=== PATIENT | male | born 1970 | race Caucasian/White ===

== ENCOUNTER 2018-12-30 07:58 | Day surgery (SDC) | payer BC ==
[2018-12-30] MEDS ORDERED: MAGNESIUM SULFATE 1 GM/2 ML VIAL IV ONE (07:59)
[2018-12-30] MEDS ORDERED: DEXAMETHASONE 4 MG/ML VIAL IVP ONE (07:59)
[2018-12-30] MEDS ORDERED: fentaNYL 100 MCG/2 ML VIAL IVP ONE (07:59)
[2018-12-30] MEDS ORDERED: NEOSTIGMINE 1 MG/1 ML 10 ML MDV IVP ONE (07:59)
[2018-12-30] MEDS ORDERED: PROPOFOL 200 MG/20 ML VIAL IVP ONE (07:59)
[2018-12-30] MEDS ORDERED: MIDAZOLAM 2 MG/2 ML VIAL IVP ONE (07:59)
[2018-12-30] MEDS ORDERED: KETOROLAC 30 MG/ML VIAL IVP ONE (07:59)
[2018-12-30] MEDS ORDERED: KETAMINE 500 MG/10 ML VIAL IVP ONE (07:59)
[2018-12-30] MEDS ORDERED: ONDANSETRON 4 MG/2 ML VIAL IVP ONE (07:59)
[2018-12-30] MEDS ORDERED: ROCURONIUM 50 MG/5 ML VIAL IVP ONE (07:59)
[2018-12-30] MEDS ORDERED: GLYCOPYRROLATE 1 MG/5 ML VIAL IVP ONE (07:59)
[2018-12-30] MEDS ORDERED: CEFAZOLIN SODIUM IN 0.9 % NACL 2 GM/100 ML BAG IV ONE (08:15)
[2018-12-30] MEDS ORDERED: LACTATED RINGERS 1,000 ML IV ONE (08:49)
--- NOTE | 2018-12-30 09:10 | ANESTHESIA ---
Pre-Anesthesia VS, & Labs - Diagnosis R achilles tendon tear - Procedure R achilles tendon repair Vital Signs: Temp Pulse Resp BP Pulse Ox 36.2 C L 65 16 112/71 94 12/30/18 08:21 12/30/18 08:21 12/30/18 08:21 12/30/18 08:21 12/30/18 08:21 Height 6 ft 3 in Weight (kg) 108.5 kg - NPO >8 hours Home Medications and Allergies Allergies/Adverse Reactions: Allergies Allergy/AdvReac Type Severity Reaction Status Date / Time oxycodone [From Percocet] Allergy Intermediate Rash Verified 12/30/18 08:50 acetaminophen [From Percocet] Allergy Rash Verified 12/30/18 08:50 Anes History & Medical History - Anesthetic History Anesthesia Complications: reports: No previous complications Family history of Anesthesia Complications: Denies Family history of Malignant Hyperthermia: Denies - Medical History Cardiovascular: reports: None Pulmonary: reports: Sleep apnea, CPAP use Gastrointestinal: reports: GERD Urinary: reports: Kidney stones Musculoskeletal: reports: Osteoarthritis Skin: reports: None - Surgical History General: Colonoscopy, Other Exam General: Alert, Oriented x3, Cooperative Dental: WNL (cap at #8) Mouth Openin Fingerbreadth Neck Mobility: Normal Mallampati classification: II Thyromental Distance: 4-6 cm Respiratory: Lungs clear, Normal breath sounds Cardiovascular: Regular rate Abdomen: Normal bowel sounds Neurological: Normal speech Mental/Cognitive Status: Alert/Oriented X3, Normal for patient Cognitive Status: Within normal limits Plan Anesthesia Type: General Consent for Procedure(s) Verified and Reviewed: Yes Code Status: Attempt Resuscitation ASA classification: 2-Mild systemic disease Is this case an emergency?: No
[2018-12-30] MEDS ORDERED: LIDOCAINE-MPF 1% 30 ML VIAL ONE (10:09)
[2018-12-30] MEDS ORDERED: BUPIVACAINE 0.25%-EPI 1:200000 PF 30 ML VIAL ONE (10:10)
[2018-12-30] MEDS ORDERED: BUPIVACAINE 0.25%-EPI 1:200000 PF 30 ML VIAL SUBQ ONE ×2 (10:50)
[2018-12-30] MEDS ORDERED: LIDOCAINE 1% 50 ML MDV SUBQ ONE ×2 (10:50)
[2018-12-30] MEDS ORDERED: HYDROcod/ACETAM 5/325 MG TABLET PO PRN (11:27)
--- NOTE | 2018-12-30 11:27 | OPERATIVE REPORT ---
Operative Report - General Procedure Date: 12/30/18 Planned Procedure: repair of right achilles tendon Pre-Op Diagnosis: Achilles tendon tear Procedure Performed: Primary repair of right Achilles tendon Post Op Diagnosis: same - Procedure Note Primary Surgeon: sameer Anesthesia Provider: Marcus Anesthesia Technique: General ET tube Estimated Blood Loss (mL): 20
[2018-12-30] MEDS: fentaNYL 100 MCG/2 ML VIAL ONE ×2 (12:07→12:12)
[2018-12-30] MEDS ORDERED: HYDROmorphone 0.5 MG/0.5 ML SYRINGE ONE (12:29)
[2018-12-30] MEDS ORDERED: HYDROcod/ACETAM 5/325 MG TABLET ONE (13:04)
[2018-12-30] MEDS ORDERED: ONDANSETRON 4 MG/2 ML VIAL ONE (13:56)
[2018-12-30 14:05] VITALS: BP 106/76
== END 2018-12-30 07:59 | disposition home or self-care (01) ==
LOC: SDS 07:58
PROVIDERS: ATTEND Orthopaedic Surgery
PROC: 0LQN0ZZ Repair Right Lower Leg Tendon, Open Approach (ICD-10-PCS; principal; 2018-12-30 09:00)
DX: S86.011A Strain of right Achilles tendon, initial encounter (principal); G47.30 Sleep apnea, unspecified
CPT/HCPCS: 27650; A9270; J0690; J1170; J7120

== ENCOUNTER 2019-05-13 08:00 | Outpatient (CLI) | payer BC, OTHER ==
[2019-05-13 13:37] LABS: ALBUMIN 4.7 g/dL (3.2-5.5); ALBUMIN/GLOBULIN RATIO 1.6 (1.0-2.2); ALKALINE PHOSPHATASE 57 IU/L (42-121); ALT ALANINE AMINOTRANSFERASE 63 IU/L (10-60); AST ASPARTATE AMINOTRANSFERASE 56 IU/L (10-42); BILIRUBIN,TOTAL 1.1 mg/dL (0.2-1.0); BUN - BLOOD UREA NITROGEN 21 mg/dL (6-20); CALCIUM 9.7 mg/dL (8.5-10.3); CARBON DIOXIDE - CO2 28 mmol/L (21-32); CHLORIDE 107 mmol/L (101-111); CHOL/HDL RATIO 5.4 (<5.0); CHOLESTEROL 212 mg/dL; CREATININE 0.9 mg/dL (0.6-1.2); GFR - MDRD 90 (>89); GLUCOSE 107 mg/dL (70-100); HDL CHOLESTEROL 39 mg/dL; LDL CHOLESTEROL,CALCULATED 134 mg/dL; LDL/HDL RATIO 3.4 (<3.6); SODIUM 141 mmol/L (135-145); TOTAL PROTEIN 7.7 g/dL (6.7-8.2); VLDL CHOLESTEROL 39 mg/dL
== END 2019-05-13 23:59 | disposition home or self-care (01) ==
LOC: LAB.WCP 08:00
PROVIDERS: ATTEND Family Medicine
DX: Z00.00 Encounter for general adult medical examination without abnormal findings (principal)
CPT/HCPCS: 36415; 80053; 80061; 83721

== ENCOUNTER 2019-06-16 07:09 | Outpatient (CLI) | payer OTHER ==
--- NOTE | 2019-06-16 10:53 | Ultrasound Report ---
Reason: LIVER FUNCTION TESTS ABN Procedure Date: 06/16/2019 Accession Number: [id number] / [id number] Procedure: US - Abdomen Complete CPT Code: Final Report FULL RESULT: EXAM: ABDOMEN ULTRASOUND EXAM DATE: 06/16/2019 07:46 AM. CLINICAL HISTORY: Elevated liver enzymes. COMPARISON: None. TECHNIQUE: Real-time scanning was performed with static images obtained. FINDINGS: Liver: Liver parenchyma is moderately echogenic diffusely. A hypoechoic nodule in the inferior right hepatic lobe measures 1.4 x 1.4 x 0.9 cm and has some internal vascularity. The right lobe measures 18.7 cm. Main portal vein flow: Hepatopetal. Gallbladder: Normal. No stones, wall thickening, or sonographic Aguirre's sign. Biliary System: Common bile duct measures 3 mm. No intrahepatic or extrahepatic ductal dilatation. Pancreas: Visualized portion is unremarkable. Kidneys: Right: 11.7 cm longitudinally. Normal. No contour-deforming mass, stones, or hydronephrosis. Left: 12.6 cm longitudinally. Normal. No contour-deforming mass, stones, or hydronephrosis. Spleen: 13.6 cm. Estimated volume 252 cc, within normal limits. Aorta and Inferior Vena Cava: Unremarkable. Other: None. IMPRESSION: 1. Moderately fatty infiltrated liver. 2. 1.4 cm indeterminate hypoechoic vascular inferior right hepatic lobe nodule. Follow-up ultrasound in 6 months to ensure stability versus further evaluation with liver CT or MRI suggested. RADIA
== END 2019-06-16 07:10 | disposition home or self-care (01) ==
LOC: DI 07:09
PROVIDERS: ATTEND Family Medicine
DX: K76.0 Fatty (change of) liver, not elsewhere classified (principal); R16.0 Hepatomegaly, not elsewhere classified
CPT/HCPCS: 76700

== ENCOUNTER 2019-07-09 13:20 | Outpatient (CLI) | payer OTHER ==
[2019-07-09] MEDS ORDERED: GADOBUTROL 10 MMOL/10 ML VIAL ONE (14:40)
--- NOTE | 2019-07-09 14:54 | MRI Report ---
Reason: JOINT PAIN IN LT KNEE Procedure Date: 07/09/2019 Accession Number: [id number] / [id number] Procedure: MRI - Knee LT W/O CPT Code: Final Report FULL RESULT: EXAM: LEFT KNEE MRI WITHOUT CONTRAST EXAM DATE: 07/09/2019 02:34 PM. CLINICAL HISTORY: JOINT PAIN IN LT KNEE. COMPARISON: XR KNEE 2 VIEWS LEFT 10/07/2018 8:04 AM. TECHNIQUE: Multiplanar, multisequence T1-weighted and fluid-sensitive sequences of the knee without contrast. Other: None. FINDINGS: Bones and articular cartilage: Mild subcortical marrow edema at the anterior and medial aspects of the medial tibial plateau. 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 Grade II-III chondromalacia of the medial femoral condyle. Small marginal osteophytes of the femoral condyles and medial tibial plateau. Small articular cartilage fissure at the lateral patellar facet. Medial Meniscus: Free edge fraying and focal radial tear at the inner third of the posterior horn. Lateral Meniscus: The lateral meniscus is intact. Cruciate Ligaments: The anterior and posterior cruciate ligaments are intact. Collateral Ligaments: The medial collateral and lateral collateral ligamentous structures are intact. Tendons: The quadriceps, patellar, semimembranosus, and popliteus tendons are unremarkable. Small synovial cyst or ganglion along the popliteus muscle tendon unit. Musculature: No edema or fatty atrophy. Other: Small joint effusion. No popliteal cyst. No loose bodies. The medial and lateral retinacula are intact. The subcutaneous tissues and fat pads are unremarkable. IMPRESSION: 1. 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 2. Free edge fraying and focal radial tear at the posterior horn medial meniscus. 3. Small synovial cyst or ganglion along the popliteus muscle tendon unit. 4. Small joint effusion. RADIA
[2019-07-09] MEDS ORDERED: GADOBUTROL 10 MMOL/10 ML VIAL IVP ONE (16:02)
== END 2019-07-09 13:21 | disposition home or self-care (01) ==
LOC: DI 13:20
PROVIDERS: ATTEND Family Medicine
DX: M94.262 Chondromalacia, left knee (principal); S83.242A Other tear of medial meniscus, current injury, left knee, initial encounter; M25.862 Other specified joint disorders, left knee; M25.462 Effusion, left knee
CPT/HCPCS: 73721; A9585

== ENCOUNTER 2019-07-15 07:00 | Outpatient (CLI) | payer OTHER ==
[2019-07-15 12:27] LABS: ALBUMIN 4.9 g/dL (3.2-5.5); ALBUMIN/GLOBULIN RATIO 1.6 (1.0-2.2); BILIRUBIN,TOTAL 1.1 mg/dL (0.2-1.0); CALCIUM 9.7 mg/dL (8.5-10.3); CREATININE 0.9 mg/dL (0.6-1.2)
[2019-07-15 13:26] LABS: HB2 TOTAL 15.9 g/dL; HEMOGLOBIN A1C 0.6 g/dL; HEMOGLOBIN A1C % 5.6 % (4.6-6.2)
[2019-07-17 14:44] LABS: HEPATITIS B SURFACE ANTIGEN NON-REACTIVE (NON-REACTIVE); HEPATITIS C ANTIBODY NON-REACTIVE (NON-REACTIVE)
== END 2019-07-15 23:59 | disposition home or self-care (01) ==
LOC: LAB.WCP 07:00
PROVIDERS: ATTEND Family Medicine
DX: R94.5 Abnormal results of liver function studies (principal); R73.01 Impaired fasting glucose; K76.89 Other specified diseases of liver
CPT/HCPCS: 36415; 80053; 83036; 86317; 86704; 86709; 86803; 87340

== ENCOUNTER 2020-05-05 14:24 | Outpatient (CLI) | payer OTHER ==
[2020-05-05 15:30] VITALS: BP 123/76
--- NOTE | 2020-05-05 15:30 | SLEEP CARE CONSULTATION ---
Information from patient questionnaire entered by Masha Lott. I have reviewed and concur with the information entered by Masha Lott. This document represents the service I personally performed and the decisions made by me, Jaylin Esqiuvel ARNP. History of Present Illness Service Date and Time: 05/05/2020 1424 Reason for Visit: New patient, Previously diagnosed sleep apnea, sleep apnea on CPAP therapy Chief Complaint: reports: Other (ongoing sleep apnea - machine problems) Date of Onset: 10 years or so Usual bedtime: 10-11 PM Time it takes to fall asleep: Less than 5 minutes Snores at night: No (Not when using mask) Observed to quit breathing while asleep: Yes (Only when not on machine) Sleeps alone due to snoring: No (thanks to machine) Number of times waking at night: Several Reasons for waking at night: denies: Choking, Snoring, Gasping for air Toss, Turn, or Twitch while sleeping: Yes Recalls having dreams: Yes Usually gets out of bed at: 4:30 AM Feels refreshed in the morning: No Morning headache: No Sleepy or fatigued during the day: Yes Ever fallen asleep while driving: Yes Takes day naps: Yes (randomely) Prior sleep studies: Yes Year and Where: 2009 at [facility] in [place] Type of Sleep Study: Polysomnography Additional HPI information: LAM MOE was diagnosed to have moderate, AHI 22.2, obstructive sleep apnea-hypopnea syndrome from a sleep study about 10 year ago by [facility] and comes in to establish care for CPAP therapy. - Parasomnia Symptoms Ever been unable to move upon waking from sleep: No Walks in sleep: No Talks in sleep: No Ever acted out dreams in sleep: No Ever felt weak in the knees when startled or emotional: No Bothered by creepy, crawly, restless sensations in legs: No Problems with memory or concentration: Yes CPAP Compliance Data - Data Reviewed with Patient Average duration of nightly device use: 7 hours 11 minutes Compliance rate %: 98.9 Current pressure setting (cmH2O): 10-14 Average residual AHI: 1.4 Central apnea: 0.1 Obstructive apnea: 0.9 Compliance data discussion: He has been ordering mask and other equipment online. He was with [facility] but it became a hassle and he could get supplies for better zavala online. The heated sometimes doesn't work on his machine and sometimes the humidity is not working right. He is having more tiredness during the day and not feeling as rested and is not sure if the machine is working properly. He is not sure how old the current machine is but thinks it is over 5 years old. He has been on CPAP for the last 10 years. Subjective Patient concerns: reports: condensation in mask/hose (sometimes lately). denies: aerophagia, mask discomfort, air blowing in eyes, mask leak noise, nasal congestion, dry mouth, nose, throat, epistaxis, other Observed to snore while using device: No Current pressure setting perceived as: too low (might be low but machine may not be working correctly at this time) On therapy, patient: reports: sleeping better, awakening more refreshed, being more awake and alert during the day, more rested overall. denies: drowsiness while driving Initial [place] Sleepiness Scale score: 14 (in 2020) Past Medical History Past Medical History: reports: Claustrophobia, GERD. 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 Patient is and lives in [place]. Have you smoked in the past 12 months: No Alcohol use: Yes Alcohol amount and frequency: Once every 3 months Caffeine use: Yes Caffeine amount and frequency: 1-2 cups of coffee per day Family History Family history of sleep disordered breathing: Yes Family Hx Sleep Apnea: Mother: Snoring, Sleep apnea - Treated Allergies and Home Medications Drug allergies reviewed: Yes (oxycodone) Home medication list reviewed: Yes (no medications) Review of Systems Weight gain over past 5 years: 15 Cardiovascular: denies: high blood pressure Gastrointestinal: reports: heartburn Urinary: denies: impotence Neurological: denies: headaches Psychiatric: denies: anxiety, depression Ear/Nose/Throat: reports: wisdom teeth removed. denies: nasal congestion, sinus problems, dry mouth/throat, tonsillectomy Physical Exam Blood Pressure: 123/76 Cuff size: wrist Heart Rate: 61 O2 Saturation: 97 Height: 6 ft 3 in Weight: 252 lb Body Mass Index: 31.5 BMI Classification: Obese Nostrils: patent to airflow Turbinates: normal Mouth and throat: narrow oropharynx Uvula visualization: 25% Mallampati Class III Tongue: normal in size Tonsils: 1+ Neck: normal w/o lymphadenopathy or thyromegaly Heart: regular rate and rhythm Lungs: clear bilaterally Impression and Plan 1. Obstructive Sleep Apnea-Hypopnea Syndrome, moderate, with good treatment compliance and good apnea control. On CPAP therapy, the patient has better sleep quality and is more rested overall. He states he can't sleep without it. He comes in today because his machine is malfunctioning. He is not sure how old the machine is but he's sure it's been over 5 years old. The patients CPAP is over 5 years old and of reasonable use. He is having problems with the machine's humidity chamber not functioning part of the time and the heated hose will not work. He is also concerned the pressure is not coming right out of the machine since he is having more trouble with tiredness and unrefreshed sleep lately. Thus, the CPAP will be updated. A DWO prescription will be made. Compliance guidelines for new device and follow up discussed. Patient's apnea severity and rationale for treatment to reduce apnea, improve sleep quality and reduce cardiovascular and cerebrovascular events was reviewed. I also reviewed the benefit of consistent device use of CPAP for his gastric reflux. * Continue auto CPAP pressure at 10-14 cmH2O * Update machine and supplies * Notify me if snoring with mask or feeling that the pressure is too much or too little * Call this office if any problems using CPAP * Return for follow up in 1-2 months, or sooner if concerns arise Visit Type: In Office Time Spent with Patient (minutes): 30 Provider Statement: I spent 100% of the Face to Face Visit with the patient with greater than 50% spent counseling the patient and coordination of care.
== END 2020-05-05 14:25 | disposition home or self-care (01) ==
LOC: SC 14:24
PROVIDERS: ATTEND Nurse Practitioner Family
DX: G47.33 Obstructive sleep apnea (adult) (pediatric) (principal); E66.9 Obesity, unspecified; Z68.31 Body mass index [BMI] 31.0-31.9, adult
CPT/HCPCS: 99203; 99212

== ENCOUNTER 2020-07-19 15:50 | Outpatient (CLI) | payer OTHER ==
--- NOTE | 2020-07-19 16:13 | SLEEP CARE CONSULTATION ---
Information from patient questionnaire entered by Masha Lott. I have reviewed and concur with the information entered by Masha Lott. This document represents the service I personally performed and the decisions made by me, Jaylin Esquivel ARNP. History of Present Illness Service Date and Time: 07/19/2020 1550 Previous diagnosis: Moderate, Obstructive Sleep Apnea-Hypopnea Syndrome AHI: 22.2 Reason for follow up: first compliance after device update (06/10/20) Equipment type: CPAP Equipment obtained from: Other ([facility]; got initial supplies) Mask style: Nasal (over the nose) Backup mask available: No (will keep mask when replaced) Last cushion change: 1 month Prior sleep studies: Yes Year and Where: 2009 at [facility] Type of Sleep Study: Polysomnography HPI additional information: LAM MOE was diagnosed to have moderate, AHI 22.2, obstructive sleep apnea-hypopnea syndrome and returned today for CPAP therapy first compliance after updating device follow-up. CPAP Compliance Data - Data Reviewed with Patient Average duration of nightly device use: 6 h 55 min Compliance rate %: 100 Current pressure setting (cmH2O): 10-14 Average residual AHI: 2.1 Subjective Patient concerns: denies: aerophagia, mask discomfort, air blowing in eyes, mask leak noise, condensation in mask/hose, nasal congestion, dry mouth, nose, throat, epistaxis, other Observed to snore while using device: No Current pressure setting perceived as: comfortable (sometimes feels like not enough air) On therapy, patient: reports: sleeping better, awakening more refreshed, being more awake and alert during the day, more rested overall. denies: drowsiness while driving Initial [place] Sleepiness Scale score: 14 (in 2019) Current [place] Sleepiness Scale score: 16 Allergies and Home Medications Drug allergies reviewed: Yes (percocet) Home medication list reviewed: Yes (no changes) Review of Systems Review of systems same as previous: Yes (no changes) Physical Exam Heart Rate: 67 O2 Saturation: 97 Height: 6 ft 3 in Weight: 251 lb Body Mass Index: 31.4 BMI Classification: Obese Impression and Plan 1. Obstructive Sleep Apnea-Hypopnea Syndrome, moderate, with excellent treatment compliance and good apnea control. On CPAP therapy, the patient has better sleep quality and is more rested overall. He feels the pressure is comfortable but sometimes would like a little more air. I will adjust his pressure to help reduce this air hunger to 12-14 cmH2O. He has some increased sleepiness due to ruminating thoughts keeping him awake when he wakes up early in the morning. I advised him to get out of bed and write these thoughts down. His subconscious may feel like these issues have been dealt with and he can return to bed to sleep. He voiced understanding and will try this. He had some questions about travel CPAPs, battery backups and insurance coverage. I let him know that most insurance do not cover these very well and to check with insurance on this. He voiced understanding. Patient's apnea severity and rationale for treatment to reduce apnea, improve sleep quality and reduce cardiovascular and cerebrovascular events was reviewed. I also reviewed the benefit of consistent device use of CPAP for gastric reflux. * Change autoCPAP pressure to 12-14 cmH2O * Notify me if snoring with mask or feeling that the pressure is too much or too little * Attempt to lose weight * Call this office if any problems using CPAP * Return for follow up in 1 year, or sooner if concerns arise Counseling Topics: Spare mask, Weight loss health impact Visit Type: In Office Time Spent with Patient (minutes): 20 Provider Statement: I spent 100% of the Face to Face Visit with the patient with greater than 50% spent counseling the patient and coordination of care.
== END 2020-07-19 15:51 | disposition home or self-care (01) ==
LOC: SC 15:50
PROVIDERS: ATTEND Nurse Practitioner Family
DX: G47.33 Obstructive sleep apnea (adult) (pediatric) (principal); E66.9 Obesity, unspecified; Z68.31 Body mass index [BMI] 31.0-31.9, adult
CPT/HCPCS: 99212; 99213

== ENCOUNTER 2022-01-17 08:00 | Outpatient (CLI) | payer OTHER ==
[2022-01-17 18:01] LABS: BILIRUBIN,URINE NEGATIVE (NEGATIVE); GLUCOSE, URINE (UA) NEGATIVE (NEGATIVE); KETONES,URINE (UA) NEGATIVE (NEGATIVE); LEUKOCYTE ESTERASE, URINE NEGATIVE (NEGATIVE); NITRITE,URINE NEGATIVE (NEGATIVE); OCCULT BLOOD,URINE NEGATIVE (NEGATIVE); PROTEIN,URINE NEGATIVE (NEGATIVE); UROBILINOGEN,URINE 0.2 (NORMAL) E.U./dL (NORMAL)
[2022-01-17 18:06] LABS: CLARITY,URINE CLEAR (CLEAR)
[2022-01-17 18:20] LABS: BACTERIA,URINE None Seen /HPF (None Seen); RBC,URINE None Seen /HPF (0-5); SQUAMOUS EPITHELIAL CELL,UR NONE SEEN (<= Few); WBC,URINE 0-3 /HPF (0-3)
== END 2022-01-17 23:59 | disposition home or self-care (01) ==
LOC: LAB.WCP 08:00
PROVIDERS: ATTEND Physician Assistant
DX: R30.0 Dysuria (principal)
CPT/HCPCS: 81001; 87086

== ENCOUNTER 2022-11-27 09:15 | Outpatient (CLI) | payer OTHER ==
--- NOTE | 2022-11-27 09:36 | Sleep Patient Instructions ---
Sleep Center Visit Summary - Patient Visit Information Reason for Visit: Annual visit for PAP therapy - Patient Instructions Additional Instructions: You will continue with CPAP therapy with pressure changed to 13-15 cmH2O. A supply prescription will be updated with your DME. I have added an order to service machine since it is making loud noise. [facility] should reach out to you to set up a time for this. We encourage you to continue to try to lose weight. Please follow up with the sleep care office in 1 year. - Clinic Information Contact: [facility] [address] [place] [email or web address] T: [phone]
--- NOTE | 2022-11-27 09:40 | SLEEP CARE CONSULTATION ---
Information from patient questionnaire entered by Kristine Carballo. I have reviewed and concur with the information entered by Kristine Carballo. This document represents the service I personally performed and the decisions made by me, Jaylin Esquivel ARNP. History of Present Illness Service Date and Time: 11/27/2022 09 Previous diagnosis: Moderate, Obstructive Sleep Apnea-Hypopnea Syndrome AHI: 22.2 Reason for follow up: annual (LAST SEEN 07/2020) Equipment type: CPAP (RESMED Airsense 10, s/u 06/2020) Equipment obtained from: Other ([facility]; getting supplies) Mask style: Nasal (over the nose) Backup mask available: Yes (old mask) Last cushion change: couple months Prior sleep studies: Yes Year and Where: 2009 at [facility] Type of Sleep Study: Polysomnography HPI additional information: LAM MOE was diagnosed to have moderate, AHI 22.2, obstructive sleep apnea-hypopnea syndrome and returned today for CPAP therapy annual follow-up. Sleep Study - Results Type of Sleep Study: Polysomnography Prior sleep studies: Yes Year and Where: 2009 at [facility] CPAP Compliance Data - Data Reviewed with Patient Average duration of nightly device use: 7 HRS 10 MIN Compliance rate %: 99 (05/27/22-11/22/22; 179/180 days used) Current pressure setting (cmH2O): 12-14 Average residual AHI: 1.4 Central apnea: 0.2 Obstructive apnea: 1.1 Hypopnea: 0 Average large leak: 1.9 L/min Subjective Patient concerns: reports: other (machine making noise in last few months). denies: aerophagia, mask discomfort, air blowing in eyes, mask leak noise, condensation in mask/hose, nasal congestion, dry mouth, nose, throat, epistaxis Observed to snore while using device: No Current pressure setting perceived as: too low On therapy, patient: reports: sleeping better, awakening more refreshed, being more awake and alert during the day, more rested overall. denies: drowsiness while driving Initial [place] Sleepiness Scale score: 14 (in 2019) Current [place] Sleepiness Scale score: 7 (11/27/22) Allergies and Home Medications Known drug allergies: Yes (as listed) Drug allergies reviewed: Yes Home medication list reviewed: Yes (no changes) Allergy and home medication list: Allergies oxycodone [From Percocet] Allergy Rash rash, headache and irritablility acetaminophen [From Percocet] Allergy Rash Review of Systems Review of systems same as previous: Yes (no changes) Physical Exam Vital signs obtained and entered by: KRISTINE Loja MA Blood Pressure: 98/66 (LEFT ARM) Cuff size: regular Heart Rate: 59 O2 Saturation: 95 Height: 6 ft 3 in Weight: 245 lb 9.6 oz Body Mass Index: 30.7 BMI Classification: Obese Impression and Plan 1. Obstructive Sleep Apnea-Hypopnea Syndrome, moderate, with good treatment compliance and good apnea control. On CPAP therapy, the patient has better sleep quality and is more rested overall. Patient states his machine is starting to make a loud noise that seems to be happening with inhaling when pressure is on. I will write to have his machine serviced to see if they can find out what the noise indicates and he voiced understanding and agreement. Patient has significant improvement of their sleep apnea and is satisfied with current CPAP therapy. Patient feels the pressure is still low even since last adjustment. The patients pressure will be changed to autoCPAP 13-15 cmH20 for patient comfort. Patient advised to contact me if pressure change is uncomfortable so that it can be adjusted. Goals for apnea control discussed. Patient denies problems with oral dryness, nasal congestion, epistaxis, skin irritation or aerophagia. Patient's apnea severity and rationale for treatment to reduce apnea, improve sleep quality and reduce cardiovascular and cerebrovascular events was reviewed. I also reviewed the benefit of consistent device use of CPAP for gastric reflux. 2. Obesity, unspecified. Currently patients BMI is 30.7. Obesity increases the risk of apnea, CPAP pressure requirements and overall health risks especially cardiovascular and diabetes. Thus patient is advised to lose weight. * Change auto CPAP pressure to 13-15 cmH2O * Update supplies * Service machine; making loud noise * Notify me if snoring with mask or feeling that the pressure is too much or too little * Attempt to lose weight * Call this office if any problems using CPAP * Return for follow up in 1 year, or sooner if concerns arise Counseling Topics: Spare mask, Weight loss health impact Visit Type: In Office Time Spent with Patient (minutes): 21 Provider Statement: I spent 100% of the Face to Face Visit with the patient with greater than 50% spent counseling the patient and coordination of care.
[2022-11-27 09:44] VITALS: BP 98/66
== END 2022-11-27 09:16 | disposition home or self-care (01) ==
LOC: SC 09:15
PROVIDERS: ATTEND Nurse Practitioner Family
DX: G47.33 Obstructive sleep apnea (adult) (pediatric) (principal); E66.9 Obesity, unspecified; Z68.30 Body mass index [BMI] 30.0-30.9, adult
CPT/HCPCS: 99212; 99213